=== PATIENT | male | born 1985 | race Caucasian/White ===

== ENCOUNTER 2016-03-05 22:06 | Emergency (ER) | END 2016-03-05 23:00 | disposition left against medical advice (07) | DX: Z53.21 Procedure and treatment not carried out due to patient leaving prior to being seen by health care provider (principal) ==

== ENCOUNTER 2017-03-07 17:55 | Emergency (ER) | END 2017-03-07 22:13 | disposition home or self-care (01) ==

== ENCOUNTER 2017-03-08 01:35 | Emergency (ER) | END 2017-03-08 04:48 | disposition home or self-care (01) ==

== ENCOUNTER 2017-10-28 09:46 | Emergency (ER) | END 2017-10-28 11:20 | disposition home or self-care (01) ==